=== PATIENT | male | born 1985 | race Hispanic/Latino ===

== ENCOUNTER 2017-10-10 15:31 | Emergency (ER) | payer OTHER ==
[~2017-10-10 15:31] MED LIST: AMIDATE IV ONE; QUELICIN ONE
[2017-10-10] MEDS ORDERED: NARCAN 2 MG/2 ML ONE (15:34)
[2017-10-10] MEDS ORDERED: ZOFRAN ONE (15:37)
[2017-10-10] MEDS ORDERED: VERSED IV ONE (15:58)
[2017-10-10] MEDS ORDERED: NARCAN 2 MG/2 ML IV ONE (16:06)
[2017-10-10] MEDS ORDERED: NACL 0.9% 1000 ML 1,000 ML IV ONE (16:06)
[2017-10-10] MEDS ORDERED: AMIDATE IV ONE (16:09)
[2017-10-10] MEDS ORDERED: QUELICIN IV ONE (16:09)
[2017-10-10] MEDS ORDERED: VASELINE LIP THERAPY TP PRN (16:33)
[2017-10-10] MEDS ORDERED: ARTIFICIAL TEARS OPHTH OINT OU PRN (16:33)
[2017-10-10 16:59] LABS: Basophils % (Auto) 0.3 % (0.0-1.8); Hematocrit 41.8 % (35.5-45.6); Hemoglobin 14.7 gm/dl (11.8-15.2); Lymphocytes # (Auto) 0.7 K/mm3 (1.2-5.4); Lymphocytes % (Auto) 7.4 % (13.4-35.0); Mean Corpuscular HGB Conc 35 % (32-34); Mean Corpuscular Hemoglobin 30 pg (28-32); Mean Corpuscular Volume 85 fl (84-94); Monocytes # (Auto) 0.9 K/mm3 (0.0-0.8); Monocytes % (Auto) 8.9 % (0.0-7.3); Platelet Count 231 K/mm3 (140-440); Red Cell Distribution Width 12.7 % (13.2-15.2)
[2017-10-10] MEDS ORDERED: VERSED IV NR (17:00)
[2017-10-10] MEDS ORDERED: NACL 0.9% 500 ML IV SCH (17:00)
[2017-10-10] MEDS ORDERED: DIPRIVAN 10 MG/ML 1,000 MG/100 ML BOTTLE IV SCH (17:00)
--- NOTE | 2017-10-10 17:02 | XRay Report ---
FINAL REPORT EXAM: XR CHEST 1V AP HISTORY: ET tube confirmation COMPARISON: None. TECHNIQUE: Single frontal view of the chest FINDINGS: Endotracheal tube with tip in the midtrachea. Enteric tube with tip in the stomach. The cardiomediastinal silhouette is normal in appearance. The lungs are clear without focal consolidation. No pleural effusion or pneumothorax. No acute bony or soft tissue abnormality. IMPRESSION: No acute cardiopulmonary disease.
[2017-10-10 17:07] LABS: Bilirubin,Urine NEG (Negative); Blood,Urine NEG (Negative); Color,Urine Yellow (Yellow); Mucus,Urine FEW /HPF; Protein,Urine <15 mg/dL mg/dL (Negative); Urobilinogen,Urine < 2.0 mg/dL (<2.0)
[2017-10-10 17:14] LABS: WBC,Urine < 1.0 /HPF (0.0-6.0)
[2017-10-10 17:15] LABS: Benzodiazepines Screen,Urine PRESUMPTIVE NEGATIVE; Cannabinoid Screen,Urine PRESUMPTIVE NEGATIVE; Methadone Screen,Urine PRESUMPTIVE NEGATIVE; Opiate Screen,Urine PRESUMPTIVE NEGATIVE
[2017-10-10 17:17] LABS: Alanine Aminotransferase 18 units/L (7-56); BUN/Creatinine Ratio 16; Blood Urea Nitrogen 11 mg/dL (9-20); Calcium 9.5 mg/dL (8.4-10.2); Hemolysis Index 16
[2017-10-10 17:31] LABS: Amphetamine Screen,Urine PRESUMPTIVE POSITIVE; Cocaine Screen,Urine PRESUMPTIVE POSITIVE
--- NOTE | 2017-10-10 19:17 | Emergency Department Report ---
HPI - General Chief Complaint: Altered Mental Status Time Seen by Provider: 10/10/17 16:05 - HPI HPI: The patient is a 32-year-old male who presents for evaluation of altered mental status via EMS. Per EMS the patient was found down on the ground unresponsive outside of a gas station, approximately 30 minutes prior to arrival. Per EMS the patient exhibited apnea respirations and was unresponsive to verbal or painful stimuli. ED Past Medical Hx - Past Medical History Previous Medical History?: No Hx Arthritis: (unable to assess) - Social History Smoking Status: Unknown if ever smoked ED Review of Systems ROS: Stated complaint: UNRESPONSIVE Other details as noted in HPI Comment: Unobtainable due to pts medical conditions (unresponsive/AMS) Physical Exam - Physical Exam Vital Signs: Vital Signs 10/10/17 10/10/17 10/10/17 16:44 17:43 18:38 Pulse Rate 85 87 88 Respiratory 13 12 Rate Blood Pressure 134/90 Blood Pressure 120/85 133/89 [Left] O2 Sat by Pulse 97 100 100 Oximetry Physical Exam: General: well-nourished, well-developed, Head: Normocephalic, atraumatic Eyes: normal sclera ENT: Mucous membranes are pale and dry Neck: No neck stiffness, no cervical adenopathy Respiratory: Patient apneic/decreased respiratory rate Cardio: S1 and S2 present, no murmurs, rubs, gallops, capillary refill is delayed Abdomen: Normoactive bowel sounds, soft abdomen, no distention Musc: No pitting edema Skin: No rash Neuro: Unresponsive to verbal or painful stimuli, gag reflex is absent, PERRL, pupils dilated Psych: Normal affect ED Course Vital Signs 10/10/17 10/10/17 10/10/17 16:44 17:43 18:38 Pulse Rate 85 87 88 Respiratory 13 12 Rate Blood Pressure 134/90 Blood Pressure 120/85 133/89 [Left] O2 Sat by Pulse 97 100 100 Oximetry - Intubation Time Out Performed: No (emergent intubation) Sedative: Etomidate Mg Given: 20 Paralytic: Succinylcholine Mg Given: 100 Laryngoscope: Atif Size: 3 ET Tube Size: 7.5 Tube Secured Depth (cm): 24 Tube Secured Location: lips Tube Placement Confirmation: visualized tube passing t, equal breath sounds bilat, no breath sounds over epi, confirmation by capnometr Patient Tolerated Procedure: well, no complications Intubation Complications: none, hypotention ED Medical Decision Making - Lab Data Result diagrams: 10/10/17 16:33 10/10/17 16:33 - Medical Decision Making The patient was seen and examined by myself probably upon arrival. On initial evaluation patient's found to be unresponsive with apneic respirations, and no gag reflex. In order to protect the patient's airway rapid sequence intubation is performed successfully with 1 attempt. A propofol drip was ordered for sedation. X-ray of the chest was obtained and confirmed appropriate and taken to placement. Lab results revealed positive amphetamine and cocaine screen but otherwise were grossly unrevealing. During ED course the patient awoke and self extubated himself. The patient admitted to consuming illicit drugs, and denies intentional overdose. Furthermore he denies thoughts of harming himself. CT scan the head is ordered as the patient knows he was confusion and disorientatio. The patient reevaluated by myself multiple times over 2 hours and he maintained airway protection, intact gag reflex, and easy arousability. CT scan the head is pending. The patient's care is transferred to the evening shift ED doc, DR. Gonzalez, whom agrees to follow up on pending CT scan of the head reading, and to arrange appropiate ultimate disposition. Critical care attestation.: If time is entered above; I have spent that time in minutes in the direct care of this critically ill patient, excluding procedure time. ED Disposition Clinical Impression: Unresponsive episode, Narcotic abuse, Polysubstance abuse, Respiratory arrest, Altered mental status, unspecified Disposition: DC-01 TO HOME OR SELFCARE Is pt being admited?: No Does the pt Need Aspirin: No Condition: Undetermined Instructions: Polysubstance Abuse (ED), Methamphetamine Abuse (ED) Referrals: PRIMARY CARE, [Primary Care Provider] - 3-5 Days Time of Disposition: 19:21
--- NOTE | 2017-10-10 21:26 | Cat Scan Report ---
FINAL REPORT PROCEDURE: CT HEAD/BRAIN WO CON TECHNIQUE: Computerized tomography of the head was performed without contrast material. HISTORY: AMS COMPARISON: No prior studies are available for comparison. FINDINGS: Skull and scalp: Normal. Paranasal sinuses: Normal. Ventricles and subarachnoid spaces: Normal. Cerebrum: No evidence of hemorrhage, acute infarction or mass . Cerebellum and brainstem: No evidence of hemorrhage, acute infarction or mass. Vasculature: Normal. Comments: None. IMPRESSION: Normal Examination
[2017-10-10 21:59] VITALS: BP 151/72
== END 2017-10-10 21:58 | disposition home or self-care (01) ==
LOC: ED 15:31
DX: R09.2 Respiratory arrest (principal); R41.82 Altered mental status, unspecified; F11.10 Opioid abuse, uncomplicated; F19.10 Other psychoactive substance abuse, uncomplicated; R55 Syncope and collapse
CPT/HCPCS: 31500; 36415; 70450; 71045; 80053; 80307; 81001; 82550; 82803; 82962; 85025; 96361; 96374; 96375; 99285; G0480; J0330; J2250; J2310; J2405; 80320; 94002

== ENCOUNTER 2017-10-18 01:10 | Emergency (ER) | payer SELFPAY ==
[2017-10-18] MEDS ORDERED: XANAX ONE (01:40)
[2017-10-18] MEDS ORDERED: XANAX PO ONE (01:44)
--- NOTE | 2017-10-18 02:01 | Emergency Department Report ---
HPI - General Chief Complaint: Overdose Time Seen by Provider: 10/18/17 01:41 - HPI HPI: 32-year-old male presents to the emergency department with complaint of having some paranoia and a bad reaction to some type of illicit drug that he took this evening. He has a history of substance abuse and was actually here about one week ago with an unresponsive episode in which the patient was intubated and then self extubated. Today the patient presents awake and alert but is pacing around the room and appears nervous. However he is awake and alert and oriented. He admits to taking the medication tonight in order to get high and did not have any thoughts of self-harm. The patient called himself and addict. He denies any headache, chest pain, fever. The patient says that he ran here because "someone suggested it." ED Past Medical Hx - Past Medical History Previous Medical History?: No Hx Arthritis: (unable to assess) - Surgical History Past Surgical History?: Yes Hx Appendectomy: Yes Additional Surgical History: left leg surgery - Social History Smoking Status: Current Every Day Smoker Substance Use Type: Alcohol, Other - Medications Home Medications: Home Medications Medication Instructions Recorded Confirmed Last Taken Type Unobtainable 10/18/17 10/18/17 Unknown History ED Review of Systems ROS: Stated complaint: TOOK METH Other details as noted in HPI Comment: All other systems reviewed and negative Constitutional: denies: chills, fever Eyes: denies: eye pain, eye discharge, vision change ENT: denies: ear pain, throat pain Respiratory: denies: cough, shortness of breath, wheezing Cardiovascular: palpitations. denies: chest pain Gastrointestinal: denies: abdominal pain, nausea, diarrhea Genitourinary: denies: urgency, dysuria Musculoskeletal: denies: back pain, joint swelling, arthralgia Skin: denies: rash, lesions Neurological: denies: headache, weakness, paresthesias Psychiatric: other (paranoia). denies: suicidal thoughts Physical Exam - Physical Exam Vital Signs: Vital Signs 10/18/17 01:29 Temperature 97.8 F Pulse Rate 124 H Respiratory 20 Rate Blood Pressure 139/99 O2 Sat by Pulse 99 Oximetry ED Course Vital Signs 10/18/17 01:29 Temperature 97.8 F Pulse Rate 124 H Respiratory 20 Rate Blood Pressure 139/99 O2 Sat by Pulse 99 Oximetry - Reevaluation(s) Reevaluation #1: The patient was reevaluated multiple times over multiple hours and appears improved. He has always been awake and oriented previously had some obvious paranoia and signs of intoxication secondary to the illicit drugs. However on his reassessment the patient does appear more calm, does not appear to be responding to any paranoia. The plan was going to be to discharge the patient home. However just as the EKG was being finished, the patient took off running and eloped from the emergency department. He did not wait for his usual close or possessions. We are contacting [facility] police to see if the patient can be found and brought back to the emergency department. 10/18/17 06:38 ED Medical Decision Making - Lab Data Result diagrams: 10/18/17 03:42 10/18/17 03:42 - EKG Data -: EKG Interpreted by Me EKG shows normal: sinus rhythm, axis, intervals, QRS complexes (LV[facility]), ST-T waves Rate: tachycardia (107 bpm) - EKG Data When compared to previous EKG there are: previous EKG unavailable Interpretation: [facility]H Critical care attestation.: If time is entered above; I have spent that time in minutes in the direct care of this critically ill patient, excluding procedure time. ED Disposition Clinical Impression: Substance abuse, Paranoia Disposition: ELOPED Is pt being admited?: No Condition: Stable Referrals: PRIMARY CARE, [Primary Care Provider] - 3-5 Days Time of Disposition: 06:40
[2017-10-18] MEDS ORDERED: ATIVAN ONE (02:24)
[2017-10-18 04:07] LABS: Basophils % (Auto) 0.2 % (0.0-1.8); Hematocrit 47.3 % (35.5-45.6); Hemoglobin 15.9 gm/dl (11.8-15.2); Lymphocytes # (Auto) 0.9 K/mm3 (1.2-5.4); Mean Corpuscular HGB Conc 34 % (32-34); Mean Corpuscular Hemoglobin 29 pg (28-32); Mean Corpuscular Volume 87 fl (84-94); Monocytes # (Auto) 1.3 K/mm3 (0.0-0.8); Platelet Count 328 K/mm3 (140-440); Red Blood Count 5.46 M/mm3 (3.65-5.03)
[2017-10-18 04:21] LABS: Bilirubin,Urine NEG (Negative); Blood,Urine NEG (Negative); Color,Urine Amber (Yellow); Hyaline Casts,Urine 10 /LPF; Mucus,Urine 3+ /HPF
[2017-10-18 04:22] LABS: BUN/Creatinine Ratio 15; Blood Urea Nitrogen 18 mg/dL (9-20); Calcium 10.6 mg/dL (8.4-10.2); Hemolysis Index 14
[2017-10-18 04:26] LABS: Benzodiazepines Screen,Urine PRESUMPTIVE NEGATIVE; Cannabinoid Screen,Urine PRESUMPTIVE NEGATIVE; Methadone Screen,Urine PRESUMPTIVE NEGATIVE; Opiate Screen,Urine PRESUMPTIVE NEGATIVE
[2017-10-18 04:43] LABS: Amphetamine Screen,Urine PRESUMPTIVE POSITIVE; Cocaine Screen,Urine PRESUMPTIVE POSITIVE
[2017-10-18 05:10] VITALS: BP 160/99
== END 2017-10-18 06:53 | disposition left against medical advice (07) ==
LOC: ED 01:10
DX: F19.10 Other psychoactive substance abuse, uncomplicated (principal); Z90.49 Acquired absence of other specified parts of digestive tract; F17.200 Nicotine dependence, unspecified, uncomplicated
CPT/HCPCS: 36415; 80048; 80307; 81001; 85025; 93005; 93010; 99283; G0480; J2060; 80320